=== PATIENT | female | born 1995 | race Caucasian/White ===

== ENCOUNTER → 2017-06-30 | Day surgery (SDC) | payer BC ==
[~2017-06-30] MED LIST: CHLORHEXIDINE GLUCONATE 2 % 1 PACK (2 CLOTHS) TOPICAL; METOPROLOL TARTRATE 25 MG TAB PO; POVIDONE IODINE 5% (ANTISEPSIS KIT) 4 APPLICATIONS EACH NARE; SODIUM CHLORID 0.9% 500 ML IV
[2017-06-30] MEDS: MICROFIBRILLAR COLLAGEN HEMOSTAT 1 GM PKT (07:04)
[2017-06-30] MEDS: LACTATED RINGER'S 1000 ML IV (07:52)
[2017-06-30] MEDS: AMPICILLIN/SULBAC 3 GM/NS 100 ML IV (08:13)
[2017-06-30] MEDS: *MEPERIDINE 25 MG INJ VIAL PERIprocedural Use ONLY (09:19)
[2017-06-30] MEDS: *ONDANSETRON 4 MG VIAL PERIprocedural Use ONLY (10:40)
== END | disposition home or self-care (01) ==
LOC: PHSDC 06:21
DX: J35.01 Chronic tonsillitis (principal); R09.82 Postnasal drip; R09.81 Nasal congestion
CPT/HCPCS: 42826; 88304

== ENCOUNTER 2017-07-06 10:46 | Emergency (ER) | payer BC ==
[~2017-07-06] VITALS: Ht 160 cm; Wt 66.4 kg
[~2017-07-06 10:46] MED LIST changes: +ADDE20 PO; -CHLORHEXIDINE GLUCONATE 2 % 1 PACK (2 CLOTHS) TOPICAL; -METOPROLOL TARTRATE 25 MG TAB PO; +NORE1TAB57 PO; -POVIDONE IODINE 5% (ANTISEPSIS KIT) 4 APPLICATIONS EACH NARE; -SODIUM CHLORID 0.9% 500 ML IV
[2017-07-06 10:59] VITALS: BP 113/73; PULSE 72; RESP 16; TEMP 97.9; O2SAT 97
[2017-07-06] MEDS ORDERED: HYDR1SOL3 PO (11:56)
--- NOTE | 2017-07-06 12:00 | PD ---
HPI Chief Complaint: ENT Complaint Time Seen by Provider: 11:49 Travel History International Travel<30 days: No Contact w/Intl Traveler<30days: No Traveled to known affect area: No History of Present Illness HPI This 22-year-old female since she had bleeding from the back of her throat about a half an hour ago. She is a fair amount of bleeding she estimates about a cupful. She had had a tonsillectomy done on June 30. This was done by Dr. Shore. She has been doing well since the surgery. She has had some discomfort in the throat. She is not aware of any fever. PFSH Past Medical History Medical History: Denies Significant Hx Diminished Hearing: No Immunizations Current: Yes Tetanus Vaccination: < 5 Years Influenza Vaccination: No ?: Not LMP: 07/02/17 Past Surgical History AICD: No Joint Replacement: No Pacemaker: No Tonsillectomy: Yes Social History Alcohol Use: No Tobacco Use: No Substance Use: No Allergies-Medications (Allergen,Severity, Reaction): Coded Allergies: No Known Allergies (Unverified , 07/06/17) Reported Meds & Prescriptions Reported Meds & Active Scripts Active Reported Hydrocodone-Acetaminophen Liq 7.5-325 Mg/15 Ml Soln 10 Ml PO Q6H PRN Loestrin 1.5/30 (Norethindrone-Ethinyl Estradiol) 1.5-30 Mg-Mcg Tab 1 Tab PO DAILY Review of Systems General / Constitutional: No: Fever Eyes: No: Diploplia, Blurred Vision HENT: No: Headaches, Vertigo Cardiovascular: No: Chest Pain or Discomfort, Palpitations Respiratory: No: Cough, Shortness of Breath Gastrointestinal: No: Vomiting, Diarrhea Musculoskeletal: No: Myalgias, Arthralgias Skin: No Rash, No Itching Neurologic: No: Weakness, Dizziness Psychiatric: No: Anxiety Endocrine: No: Heat Intolerance Hematologic/Lymphatic: No: Easy Bruising Physical Exam Narrative GENERAL: Well-developed female. She appears quite comfortable SKIN: Focused skin assessment warm/dry. HEAD: Atraumatic. Normocephalic. EYES: Pupils equal and round. No scleral icterus. No injection or drainage. ENT: No nasal bleeding or discharge. Mucous membranes pink and moist. Posterior pharynx there is a scab on the right tonsillar fossa. On the left side there is some pink mucosa with just a small spot of blood present. There does not appear to be active bleeding NECK: Trachea midline. No JVD. CARDIOVASCULAR: Regular rate and rhythm. No murmur appreciated. RESPIRATORY: No accessory muscle use. Clear to auscultation. Breath sounds equal bilaterally. MUSCULOSKELETAL: No obvious deformities. No clubbing. No cyanosis. No edema. NEUROLOGICAL: Awake and alert. No obvious cranial nerve deficits. Motor grossly within normal limits. Normal speech. PSYCHIATRIC: Appropriate mood and affect; insight and judgment normal. Data Data Last Documented VS Vital Signs Date Time Temp Pulse Resp B/P (MAP) Pulse Ox O2 Delivery O2 Flow Rate FiO2 07/06/17 10:59 97.9 72 16 113/73 (86) 97 MDM Medical Decision Making Medical Screen Exam Complete: Yes Emergency Medical Condition: Yes Medical Record Reviewed: Yes Differential Diagnosis Diagnosis is post tonsillectomy bleeding Narrative Course Plan was to check blood work and give some IV fluids and observation. Patient says he feels quite well and would prefer not to do these procedures at this time. I have discussed the case with Dr. Monroy and he recommended she follow- up with Dr. Shore. The patient is stable at this time and is not actively bleeding. Diagnosis Primary Impression: Post-tonsillectomy hemorrhage Referrals: Yon Shore MD Disposition: 01 DISCHARGE HOME Condition: Stable Ang Nails MD July 06, 2017 12:00
[2017-07-06 12:11] VITALS: BP 117/67; PULSE 67; RESP 18; O2SAT 98
== END 2017-07-06 12:20 | disposition home or self-care (01) ==
LOC: PHED 10:46
DX: J95.830 Postprocedural hemorrhage of a respiratory system organ or structure following a respiratory system procedure (principal)
CPT/HCPCS: 99282